=== PATIENT | female | born 1975 | race African-American/Black ===

== ENCOUNTER 2016-11-08 04:14 | Inpatient (IN) | payer BC, OTHER ==
[~2016-11-08] VITALS: Ht 160 cm; Wt 81.0 kg
[2016-11-08 04:39] LABS: BASOPHILS % (AUTO) 0.5 % (0.0-2.0); EOSINOPHILS % (AUTO) 1.1 % (1.0-6.0); HEMATOCRIT 44.5 % (36-46); HEMOGLOBIN 14.8 g/dL (12.0-16.0); LYMPHOCYTES # (AUTO) 1.8 K/uL (1.0-4.8); LYMPHOCYTES % (AUTO) 21.3 % (22.0-44.0); MEAN CORPUSCULAR HEMOGLOBIN 30.4 pg (26.0-34.0); MEAN CORPUSCULAR HGB CONC 33.2 G/dL (31.0-37.0); MEAN CORPUSCULAR VOLUME 91 fL (80-100); MONOCYTES # (AUTO) 0.7 K/uL (0.1-1.0); MONOCYTES % (AUTO) 8.1 % (2.0-9.0); NEUTROPHILS # (AUTO) 5.7 K/uL (1.8-7.7); PLATELET COUNT (AUTO) 319 K/uL (150-450); RED BLOOD CELL COUNT(AUTO) 4.87 MIL/uL (4.00-5.20); RED CELL DISTRIBUTION WIDTH 13.7 % (11.5-14.5); WHITE BLOOD COUNT (AUTO) 8.3 K/uL (4.5-11.0)
[2016-11-08 04:47] LABS: ANION GAP 7 mmol/L (8-16); CARBON DIOXIDE 31 mmol/L (22-29); CHLORIDE 103 mmol/L (98-107); CREATININE 0.95 mg/dL (0.60-1.30); GLOMERULAR FILTR. RATE CALC > 60 mL/min (>60); POTASSIUM 3.6 mmol/L (3.5-5.1); SODIUM SERUM 141 mmol/L (136-145); UREA NITROGEN, BLOOD 12 mg/dL (7-18)
[2016-11-08 04:53] LABS: ALANINE AMINOTRANSFERASE 33 U/L (12-78); ALBUMIN 4.1 g/dL (3.4-5.0); ASPARTATE AMINOTRANSFERASE 16 U/L (15-37); BILIRUBIN,TOTAL 0.7 mg/dL (0.1-1.0); TOTAL PROTEIN, SERUM 8.5 g/dL (6.4-8.2)
[2016-11-08] MEDS ORDERED: LORazepam 2 MG TABLET PO ONE (06:00)
[2016-11-08] MEDS ORDERED: ZOLPIDEM TARTRATE 10 MG TABLET PO PRN (12:15)
[2016-11-08] MEDS ORDERED: LORazepam 2 MG TABLET PO PRN (12:15)
[2016-11-08] MEDS ORDERED: HALOPERIDOL 5 MG TABLET PO PRN (12:15)
[2016-11-08 16:00] VITALS: BP 108/68
[2016-11-08] MEDS ORDERED: ACETAMINOPHEN 325 MG TABLET PO PRN (18:30)
[2016-11-08] MEDS ORDERED: IBUPROFEN 600 MG TABLET PO PRN (18:30)
[2016-11-09 06:10] VITALS: BP 129/70
[2016-11-09 08:20] VITALS: BP 108/62
[2016-11-09] MEDS: FLUoxetine HCL 20 MG CAPSULE PO SCH (12:24)
[2016-11-09] MEDS: BuPROPion HCL XL 150 MG ER TABLET PO SCH (12:24)
[2016-11-09 16:26] VITALS: BP 100/67
[2016-11-10 00:04] VITALS: BP 110/66
[2016-11-10] MEDS: BuPROPion HCL XL 150 MG ER TABLET PO SCH (08:43)
[2016-11-10] MEDS: FLUoxetine HCL 20 MG CAPSULE PO SCH (08:43)
[2016-11-10 08:44] VITALS: BP 109/69
[2016-11-10] MEDS ORDERED: BUPR-93 PO (09:18)
[2016-11-10] MEDS ORDERED: FLUO-191 PO (09:18)
== END 2016-11-10 11:59 | disposition home or self-care (01) | DRG 885 ==
LOC: EMS 04:15 → B2S 13:33
DX: F33.2 Major depressive disorder, recurrent severe without psychotic features (principal); R45.851 Suicidal ideations; G43.909 Migraine, unspecified, not intractable, without status migrainosus; F43.12 Post-traumatic stress disorder, chronic; G89.29 Other chronic pain; F17.210 Nicotine dependence, cigarettes, uncomplicated; M54.9 Dorsalgia, unspecified; Z88.0 Allergy status to penicillin; Z98.890 Other specified postprocedural states
CPT/HCPCS: 99285; A0429; G0480